=== PATIENT | male | born 1990 | race African-American/Black ===

== ENCOUNTER 2024-02-19 15:50 | Inpatient (IN) | payer SELFPAY ==
[~2024-02-19] VITALS: Ht 180.3 cm; Wt 101.4 kg
[2024-02-19] VITALS (13 sets, daily range): BP systolic 135–168; BP diastolic 81–100
[2024-02-19] MEDS ORDERED: Ondansetron HCl 2 MG / ML 2ML Vial IV PRN ×2 (16:00→18:45)
[2024-02-19] MEDS ORDERED: Lactated Ringer's 1,000 ML IV ONE (16:10)
[2024-02-19] MEDS ORDERED: Ondansetron HCl 2 MG / ML 2ML Vial ONE (16:16)
[2024-02-19 16:18] LABS: BASOPHILS ABSOLUTE AUTO 0.04 K/mm3 (0.00-0.23); BASOPHILS PERCENT AUTO 0 % (0-2); EOSINOPHILS ABSOLUTE AUTO 0.12 K/mm3 (0.00-0.68); EOSINOPHILS PERCENT AUTO 1 % (0-6); Hematocrit 39.4 % (37.0-53.0); Hemoglobin 13.4 g/dL (13.5-17.5); IMMATURE GRAN ABSOLUTE AUTO 0.24 K/mm3 (0.00-0.10); IMMATURE GRAN PERCENT AUTO 2 % (0-1); LYMPHOCYTES ABSOLUTE AUTO 2.61 K/mm3 (0.84-5.20); LYMPHOCYTES PERCENT AUTO 26 % (21-46); MONOCYTES ABSOLUTE AUTO 1.05 K/mm3 (0.16-1.47); MONOCYTES PERCENT AUTO 11 % (4-13); Mean Corpuscular HGB 30.3 pg (26.0-34.0); Mean Corpuscular Volume 89 fL (80-100); Mean Platelet Volume 10.1 fL (9.1-12.4); NEUTROPHILS ABSOLUTE AUTO 5.91 K/mm3 (1.96-9.15); NEUTROPHILS PERCENT AUTO 59 % (41-73); Platelet Count 254 K/mm3 (150-400); RDW Coefficient Variation 13.3 % (11.7-14.2); RDW Standard Deviation 43.1 fL (35.1-46.3); Red Blood Cell Count 4.42 M/mm3 (4.30-5.90); White Blood Cell Count 9.97 K/mm3 (4.00-11.30)
[2024-02-19] MEDS ORDERED: Ondansetron HCl 2 MG / ML 2ML Vial IV ONE (16:25)
[2024-02-19 16:44] LABS: Albumin, Blood 4.3 g/dL (3.4-5.0); Bun/Creatinine Ratio 18.4 (12.0-20.0); Calcium, Blood 10.4 mg/dL (8.5-10.1); Creatinine, Blood 0.98 mg/dL (0.60-1.20); Globulin, Blood 4.4 g/dL (2.2-4.0); Potassium, Blood 3.7 mmol/L (3.5-5.5); Total Protein, Blood 8.7 g/dL (6.4-8.2)
[2024-02-19] MEDS ORDERED: NS 1,000 ML IV SCH (17:00)
[2024-02-19 17:18] LABS: Base Excess Venous -16.8 mmol/L; Bicarbonate Venous 12.8 mmol/L (24.0-30.0); PCO2 Venous 28.9 mmHg (38-42); pH Blood Venous 7.19 (7.34-7.37)
[2024-02-19 17:41] LABS: Beta-hydroxybutyrate 87.8 mg/dL (0.2-2.8)
[2024-02-19] MEDS ORDERED: Acetaminophen 325 MG TABLET PO PRN (18:45)
[2024-02-19] MEDS ORDERED: Lactated Ringer's 1,000 ML IV SCH ×2 (18:50)
--- NOTE | 2024-02-19 19:55 | NUR ---
ASSUMPTION OF CARE PT TRANSFERED TO ICU FROM ER. PT TRANSITIONED TO ICU BED WITH SBA. PT ALERT AND ORIENTED X4, PT ANSWERS QUESTIONS APPROPRIATELY, FOLLOW DIRECTION WHEN PROMPTED AND IS ABLE TO MAKE NEEDS KNOWN. PT MOVES ALL EXTREMITIES EQUALLY BILATERALLY. HR 60-70'S NSR, MAP >65. PT ON RA, LUNG SOUNDS CLEAR. PT COMPLAINING OF NAUSEA AND ACID REFLUX, MEDICATED PER EMAR, BOWEL TONES ACTIVE IN ALL FOUR QUADRANTS. PT USES URINAL TO VOID. PIV IN PLACE TO LAC. PT SIGNIFICANT OTHER AT THE BEDSIDE. BED IN LOWEST POSITION, CALL LIGHT WITHIN REACH, CARE CONTINUES.
[2024-02-19 20:01] LABS: Calcium, Blood 9.2 mg/dL (8.5-10.1); Creatinine, Blood 0.83 mg/dL (0.60-1.20); Potassium, Blood 4.1 mmol/L (3.5-5.5)
[2024-02-19 20:29] LABS: Source, Urine Clean Catch
[2024-02-19 20:33] LABS: Appearance, Urine Hazy (Clear); Bilirubin, Urine Neg (Neg); Blood, Urine 3+ (Neg); Glucose Qualitative, Urine 4+ (Neg); Ketones, Urine 4+ (Neg); Leukocyte Esterase, Urine Neg (Neg); Nitrite, Urine Neg (Neg); Protein, Urine 2+ (Neg); Specific Gravity, Urine 1.025 (1.003-1.022); Urobilinogen, Urine NORM (Normal)
[2024-02-19] MEDS ORDERED: Insulin Human Regular 100 UNIT in NS 100 ML IV SCH (20:35)
[2024-02-19 20:41] LABS: Color, Urine Pale Yellow (P-Yellow)
[2024-02-19 20:42] LABS: Red Blood Cells, Urine 0-2 /hpf (0-2); Squamous Epithelial Cells Few /hpf (Few); White Blood Cells, Urine 0-2 /hpf (0-5)
[2024-02-19 20:43] LABS: Bacteria Rare /hpf
[2024-02-19] MEDS ORDERED: Calcium Carbonate 500 MG Tab Chew PO PRN (20:45)
[2024-02-20] VITALS (33 sets, daily range): BP systolic 104–169; BP diastolic 61–120
[2024-02-20 00:28] LABS: Calcium, Blood 9.3 mg/dL (8.5-10.1); Creatinine, Blood 0.93 mg/dL (0.60-1.20); Potassium, Blood 3.2 mmol/L (3.5-5.5)
[2024-02-20] MEDS ORDERED: NS 250 ML IV PRN (00:55)
[2024-02-20] MEDS ORDERED: Potassium Chloride 40 MEQ in NS 250 ML IV ONE (01:00)
[2024-02-20] MEDS ORDERED: D5W-1/2NS 1,000 ML IV SCH (01:05)
--- NOTE | 2024-02-20 01:26 | NUR ---
PT UPDATE CALLED AND SPOKE WITH HOSPITALIST REGARDING PT LABS, ORDERS RECEIVED. CARE CONTINUES.
[2024-02-20 03:34] LABS: BASOPHILS ABSOLUTE AUTO 0.03 K/mm3 (0.00-0.23); BASOPHILS PERCENT AUTO 0 % (0-2); EOSINOPHILS ABSOLUTE AUTO 0.13 K/mm3 (0.00-0.68); EOSINOPHILS PERCENT AUTO 2 % (0-6); Hematocrit 30.9 % (37.0-53.0); Hemoglobin 10.7 g/dL (13.5-17.5); IMMATURE GRAN ABSOLUTE AUTO 0.11 K/mm3 (0.00-0.10); IMMATURE GRAN PERCENT AUTO 2 % (0-1); LYMPHOCYTES ABSOLUTE AUTO 1.86 K/mm3 (0.84-5.20); LYMPHOCYTES PERCENT AUTO 26 % (21-46); MONOCYTES ABSOLUTE AUTO 0.72 K/mm3 (0.16-1.47); MONOCYTES PERCENT AUTO 10 % (4-13); Mean Corpuscular HGB 30.8 pg (26.0-34.0); Mean Corpuscular HGB Conc 34.6 g/dL (31.5-36.5); Mean Corpuscular Volume 89 fL (80-100); NEUTROPHILS ABSOLUTE AUTO 4.25 K/mm3 (1.96-9.15); NEUTROPHILS PERCENT AUTO 60 % (41-73); Platelet Count 228 K/mm3 (150-400); RDW Coefficient Variation 13.8 % (11.7-14.2); RDW Standard Deviation 44.3 fL (35.1-46.3); Red Blood Cell Count 3.47 M/mm3 (4.30-5.90)
[2024-02-20 04:02] LABS: Alanine Aminotransfer (ALT/SGP 25 U/L (12-78); Albumin, Blood 3.3 g/dL (3.4-5.0); Alk Phos 68 U/L (50-136); Anion Gap 14 mmol/L (3-11); Aspartate Aminotrans (AST/SGOT 10 U/L (12-37); Bilirubin, Total 1.7 mg/dL (0.1-1.0); Blood Urea Nitrogen 13 mg/dL (8-24); Bun/Creatinine Ratio 13.3 (12.0-20.0); CHOL/HDL RATIO 4.6; CO2, Blood 17 mmol/L (21-32); Calcium, Blood 9.4 mg/dL (8.5-10.1); Chloride, Blood 108 mmol/L (98-108); Cholesterol 182 mg/dL (50-200); Creatinine, Blood 0.98 mg/dL (0.60-1.20); Glomerular Filtration Rate 104 (60-); Glucose, Blood 248 mg/dL (70-99); HDL Cholesterol 40 mg/dL (>39); LDL/HDL RATIO 2.4; Low Density Lipoprotein Chol 96 mg/dL (0-110); Magnesium, Blood 1.5 mg/dL (1.6-2.4); Phosphorus, Blood 1.9 mg/dL (2.5-4.9); Potassium, Blood 3.2 mmol/L (3.5-5.5); Sodium, Blood 136 mmol/L (136-145); Triglycerides 229 mg/dL (30-140); Very Low Density Lipoprot Chol 45 mg/dL (6-28)
[2024-02-20 04:05] LABS: Globulin, Blood 3.4 g/dL (2.2-4.0)
[2024-02-20 04:08] LABS: Total Protein, Blood 6.7 g/dL (6.4-8.2)
[2024-02-20] MEDS ORDERED: Potassium Chloride 20 MEQ TabCR PO ONE (04:40)
[2024-02-20] MEDS ORDERED: Magnesium Sulf 2 GM/Water 50ML 50 ML IV ONE (05:00)
--- NOTE | 2024-02-20 05:06 | NUR ---
PT UPDATE CALLED AND SPOKE WITH HOSPITALIST REGARDING PT LABS, ORDERS RECEIVED. CARE CONTINUES.
--- NOTE | 2024-02-20 05:59 | NUR ---
SHIFT SUMMARY NO ACUTE CHANGES THIS SHIFT. PT CONTINUES TO REST IN BED, SLEEPING BUT AROUSABLE. ORIENTED X4, PT ANSWERS QUESTIONS APPROPRIATELY, FOLLOWS DIRECTION WHEN PROMPTED AND IS ABLE TO MAKE NEEDS KNOWN. PT MOVES EXTREMITIES EQUALLY BILATERALLY, AMBULATES IN THE ROOM WITH SBA. HR 50-70'S SINUS, MAP >65. PT ON RA. ABDOMEN SOFT NONTENDER, PT HAS COMPLAINED OF NAUSEA AND ACID REFLUX THIS SHIFT, MEDICATED PER EMAR. PT USES URINAL TO VOID. INSULIN INFUSING AT 4UNITS/HR SEE FLOW SHEET FOR TITRATIONS, D5 1/2 NS INFUSING AT 150MLS/HR, PT RECEIVED ELECTROLYTE REPLACEMENT THIS SHIFT, SEE EMAR FOR DETAILS. PIV IN PLACE TO LAC, POWERGLIDE IN PLACE TO CHANELLE. BED IN LOWEST POSITION, CALL LIGHT WITHIN REACH, PT SIGNIFICANT OTHER IS AT THE BEDSIDE. CARE CONTINUES.
[2024-02-20] MEDS ORDERED: Potassium Phosphate Dibasic 30 MM in Dextrose 5% 500 ML IV STA (07:47)
[2024-02-20] MEDS ORDERED: Enoxaparin 40 MG/0.4 ML SYR SC SCH (09:00)
[2024-02-20 09:05] LABS: Bun/Creatinine Ratio 12.4 (12.0-20.0); Calcium, Blood 8.7 mg/dL (8.5-10.1); Creatinine, Blood 0.89 mg/dL (0.60-1.20); Magnesium, Blood 1.9 mg/dL (1.6-2.4); Phosphorus, Blood 1.4 mg/dL (2.5-4.9); Potassium, Blood 3.4 mmol/L (3.5-5.5)
--- NOTE | 2024-02-20 10:24 | NUR ---
DR MCFARLANE ROUNDED THIS AM, REPORTS THAT ANION GAP IS CLOSING AND IS NOW DOWN TO 12 WE WILL SHORTLY BEGIN TO TRANSITION FROM IV INSULIN TO SUBCUTANEOUS INSULIN. SHE WILL BE PLACING ORDERS SOON FOR PATIENT. HE IS UDPATED BY MD THAT ONCE THESE ORDERS CHANGE HE WILL BE ABLE TO EAT. I WILL EDUCATE FAMILY AND PT ABOUT INSULIN ADMINISTRATION, AND ABOUT CARBOHYDRATE CONCIOUS FOODS. HE IS FREE OF CP OR SOB. NO NVD NOTED.
[2024-02-20] MEDS ORDERED: NS 1,000 ML IV SCH (10:40)
[2024-02-20] MEDS ORDERED: Insulin Glargine-Yfgn 100 Unit/mL 3 ML SYR SC SCH (11:00)
--- NOTE | 2024-02-20 11:26 | NUR ---
PT WAS EDUCATED ON INSULIN ADMINISTRATION, INSULIN ADMINISTERED. INSULIN DRIP WILL BE D/C IN [address] MCFARLANE'S ORDERS. PT EATING AND DRINKING AT THIS TIME
[2024-02-20] MEDS ORDERED: Insulin Human Lispro 100 Units/ML 3ML Syringe SC SCH (11:30)
[2024-02-20 13:39] LABS: Albumin/Globulin Ratio 0.9 (0.8-1.8); Bilirubin, Total 1.7 mg/dL (0.1-1.0); Bun/Creatinine Ratio 9.9 (12.0-20.0); Calcium, Blood 8.4 mg/dL (8.5-10.1); Creatinine, Blood 1.01 mg/dL (0.60-1.20); Globulin, Blood 3.2 g/dL (2.2-4.0); Magnesium, Blood 1.5 mg/dL (1.6-2.4); Phosphorus, Blood 3.1 mg/dL (2.5-4.9); Potassium, Blood 3.5 mmol/L (3.5-5.5); Total Protein, Blood 6.2 g/dL (6.4-8.2)
--- NOTE | 2024-02-20 14:07 | NUR ---
PT REMAINS A/O X4. RESTING WELL IN BED, HE DOES REPORT THAT HE IS HAVING A GRIFFITHS FROM LACK OF CAFFIENE, HE DECLINES TYLENOL FOR PAIN HE ASKS FOR HOT TEA WHICH IS PROVIDED. HE DENIES FURTHER NEEDS AT THIS TIME. S/O IS AT BEDSIDE THEY ARE WATCHING TV TOGETHER. NADN. POPE
--- NOTE | 2024-02-20 14:37 | NUR ---
DIABETIC EDUCATION PROVIDED TO PT AND FAMILY, PRINTOUTS PROVIDED
--- NOTE | 2024-02-20 17:22 | NUR ---
PT WITH GOOD APPETITE. HE WAS ABLE TO DO A RETURN DEMONSTRATION OF INSULIN INJECTION THIS EVENING. S/O IS AT BEDSIDE. HE REMAINS A/O X4. NO CP OR SOB. NADN. VSS. HIS BLOOD SUGARS HAVE TRENDED UP AFTER INSULIN DRIP AND D5 WERE STOPPED. THE POTASSIUM PHOSPHATE WAS RUNNING AFTER THESE INFUSIONS STOPPED WHICH WOULD ACCOUNT FOR SOME OF THE ELEVATION IN BLOOD SUGARS PLUS HE IS NOW EATING.
--- NOTE | 2024-02-20 18:56 | NUR ---
REPORT TO GWENDOLYN RN ON MEDICAL FLOOR NS INFUSING AT 100/HR
[2024-02-20] MEDS ORDERED: Magnesium Oxide 400 MG Tab PO SCH (21:00)
[2024-02-20] MEDS ORDERED: Insulin Human Lispro 100 Units/ML 3ML Syringe SC ONE (22:10)
--- NOTE | 2024-02-20 23:44 | NUR ---
REPORT RECEIVED FROM ICU NURSE RYAN Carbajal PT. TRANSFERRED BY WALKING TO THE MEDICAL FLOOR, FROM ICU, ACCOMPANIED WITH TRANSPORTER. NS CONTINUED ORDERED. PICC LINE ON RIGHT AC. PT. DENIES ANY PAIN, SOB, N/V. PT.'S GIRLFRIEND/SIGNIFICANT OTHER BY THE BEDSIDE. MIKO CLEAR, BT ACTIVE, LAST BM TODAY 02/19/14. PT. IS ON RA. @2030 BG 405, RN AND NP. ALTMAN NOTIFIED. 2100 SCHEDULED INSULIN PER SLIDING SCALE ADMINISTERED. PER SURAJ ORDER, RECHECKED BG AN HR LATER, @2125. B, ENTERED ONE-TIME ORDER HS SLIDING SCALE. INSULIN GIVEN ORDERED ON HS SLIDING SCALE. SURAJ AND CHARGE NURSE NOTIFIED. NO NEW ORDERS AT 2230.
[2024-02-21 03:16] VITALS: BP 109/60
--- NOTE | 2024-02-21 05:15 | NUR ---
SHIFT SUMMARY PT. WAS TRANSFERRED FROM ICU TO THE MED FLOOR, (SEE PREVIOUS NOTE.) PER SHIFT ASSESSMENT:LS CLEAR, PT. DENIES COUGH, N/V,HEADACHE, OR DISCOMFORT, AND PAIN. PT.'S SIGNIFICANT OTHER /GIRLFRIEND BY THE BEDSIDE. NS INFUSING T/O THE SHIFT. @2029 B. ADAPTED PHYSICAL EDUCATION AIDE NOTIFIED, NP. ALTMAN NOTIFIED. SURAJ ORDERES: GIVE INSULIN ORDERED FOR 2100 READING (FOR B), AND RECHECK IN ONE HR. AT 0, RECHECK B, ONE TIME INSULIN ORDER: SAME SLIDING SCALE AND INSULIN THE 2100 INSULIN ADMINISTERED ORDERED. NO ACUTE DISTRESS NOTED/REPORTED DURING THIS SHIFT. CALL LIGHT IN REACH, BED AT THE LOWEST POSITION. WILL HAND OFF TO THE INCOMING NURSE.
[2024-02-21 05:36] LABS: Anion Gap 17 mmol/L (3-11); Blood Urea Nitrogen 10 mg/dL (8-24); Bun/Creatinine Ratio 10.4 (12.0-20.0); CO2, Blood 18 mmol/L (21-32); Calcium, Blood 8.7 mg/dL (8.5-10.1); Chloride, Blood 104 mmol/L (98-108); Creatinine, Blood 0.96 mg/dL (0.60-1.20); Glomerular Filtration Rate 107 (60-); Glucose, Blood 382 mg/dL (70-99); Magnesium, Blood 1.5 mg/dL (1.6-2.4); Phosphorus, Blood 3.3 mg/dL (2.5-4.9); Potassium, Blood 3.3 mmol/L (3.5-5.5); Sodium, Blood 136 mmol/L (136-145)
[2024-02-21 07:45] VITALS: BP 112/77
[2024-02-21] MEDS ORDERED: NS KCl 20mEq 1,000 ML IV SCH (08:25)
[2024-02-21] MEDS ORDERED: Magnesium Sulf 2 GM/Water 50ML 50 ML IV ONE (08:30)
[2024-02-21] MEDS ORDERED: Insulin Glargine-Yfgn 100 Unit/mL 3 ML SYR SC STA (10:53)
[2024-02-21] MEDS ORDERED: NS 1,000 ML IV ONE (11:15)
[2024-02-21] MEDS ORDERED: Insulin Human Lispro 100 Units/ML 3ML Syringe SC ONE (11:15)
[2024-02-21] MEDS ORDERED: Insulin Human Lispro 100 Units/ML 3ML Syringe SC SCH (12:30)
[2024-02-21 14:16] LABS: Bun/Creatinine Ratio 10.8 (12.0-20.0); Calcium, Blood 7.8 mg/dL (8.5-10.1); Creatinine, Blood 0.93 mg/dL (0.60-1.20); Potassium, Blood 2.9 mmol/L (3.5-5.5)
[2024-02-21 15:35] VITALS: BP 118/74
[2024-02-21] MEDS ORDERED: Potassium Chloride 20 MEQ TabCR PO ONE (15:35)
[2024-02-21] MEDS ORDERED: INSULANPEN SC (16:03)
[2024-02-21] MEDS ORDERED: INSULIN LI100 UNIT/6 SC (16:05)
--- NOTE | 2024-02-21 17:44 | NUR ---
DISCHARGE PATIENT A&OX4, COOPERATIVE WITH CARE, INDEPENDENT IN ROOM/ NO ACUTE EVENTS. CBGS TRENDED DOWN T/O SHIFT. LAST LEVEL WAS 208. EDUCATED PATIENT ON DIABETIC DIET, COUNTING CARBS, HOW TO USE THE INSULIN PENS, HOW TO USE THE SLIDING SCALE. PATIENT AND SO DENIED HAVING ANY QUESTIONS OR CONCERNS. POWERGLIDE REMOVED. PATIENT DISCHARGED AT 1745.
[2024-02-21 20:02] LABS: SERUM, C-PEPTIDE 0.8 ng/mL (0.5-3.3)
[2024-02-21] MEDS ORDERED: Insulin Glargine-Yfgn 100 Unit/mL 3 ML SYR SC SCH (21:00)
[2024-02-22 11:33] LABS: INSULIN FREE 3 uIU/mL (3-25); TOTAL INSULIN 3 uIU/mL (3-25)
[2024-02-22 15:23] LABS: GLUTAMIC ACID DECARBOXYLASE AB <5.0 IU/mL (0.0-5.0)
[2024-02-22 23:21] LABS: ISLET CELL CYTOPLASMIC AB, IGG <1:4 (<1:4)
== END 2024-02-21 17:40 | disposition home or self-care (01) | DRG 639 ==
LOC: ER 15:50 → ICUE 19:33 → MEDS 02-20 19:14
PROVIDERS: Emergency Medicine; Internal Medicine; Nurse Practitioner; Nurse Practitioner Acute Care; ADMIT Internal Medicine
DX: E10.10 Type 1 diabetes mellitus with ketoacidosis without coma (principal); E86.0 Dehydration; E83.52 Hypercalcemia; E87.6 Hypokalemia; E83.42 Hypomagnesemia; E83.39 Other disorders of phosphorus metabolism; J45.909 Unspecified asthma, uncomplicated
CPT/HCPCS: 80048; 80053; 80061; 80069; 81001; 82010; 82803; 82947; 83036; 83525; 83527; 83690; 83735; 84100; 84443; 84681; 85025; 86341; 96361; 96374; 99285-25; A9270; C1751; J1650; J1815; J2405; J3475; J3480; J7030; J7042; J7050; J7060; J7120